=== PATIENT | female | born 1950 | race Two or more races ===

== ENCOUNTER 2023-01-01 19:24 | Emergency (ER) | payer MEDICARE, OTHER ==
[~2023-01-01] VITALS: Ht 165.1 cm; Wt 72.5 kg
[2023-01-01 19:38] VITALS: BP 0/0; PULSE 0; RESP 0; O2SAT 0
== END 2023-01-01 22:34 ==
LOC: ER 19:24 → EDBD 19:24 → ER 22:34
DX: I46.9 Cardiac arrest, cause unspecified (principal); V43.92XA Unspecified car occupant injured in collision with other type car in traffic accident, initial encounter; Y93.89 Activity, other specified; Y92.410 Unspecified street and highway as the place of occurrence of the external cause; Y99.8 Other external cause status
CPT/HCPCS: 92950